=== PATIENT | female | born 1990 | race Caucasian/White ===

== ENCOUNTER → 2024-07-26 08:30 | Outpatient (BNV) | payer OTHER, SELFPAY | PROVIDERS: Visit Provider Psychiatry & Neurology Psychiatry | DX: F39 Unspecified mood [affective] disorder (principal); F10.90 Alcohol use, unspecified, uncomplicated; F41.3 Other mixed anxiety disorders; F43.10 Post-traumatic stress disorder, unspecified; F19.10 Other psychoactive substance abuse, uncomplicated; F84.9 Pervasive developmental disorder, unspecified | CPT/HCPCS: 90834 ==

== ENCOUNTER 2024-08-19 11:30 | Outpatient (RCR) | payer OTHER, SELFPAY ==
[2024-07-26 13:44] VITALS: BP 138/84; PULSE 74; RESP 18; TEMP 36.6; BMI 34.2
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
--- NOTE | 2024-07-28 16:42 | HO.PHP ---
Client's case has been opened and reviewed in team.
--- NOTE | 2024-07-29 11:57 | PC.NURSE ---
New PCP appointment with [facility] on October 26, 2024 at 10:[address] [place] [address]. Office # [phone]
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
--- NOTE | 2024-08-05 12:05 | P.PNPSP_ITS ---
Subjective Subjective Date of Service: 08/05/24 Reason For Visit: AUD,depression,anxiety,PTSD Interim History: Patient seen for follow-up. She is anxious about getting help with what she feels are ADHD symptoms, which seems fairly likely given pervasive development issues, assisted struggles with attention, focus, problems with organization, poor academic performance. She was identified as having learning disabilities at a young age and remained on an IEP/504 throughout schooling, required to repeat 10th grade four times. Gabapentin thus far has been helpful for sleep at 300 mg. Overall helping her keep a more regular sleep schedule, able to get to sleep on time. Tolerating pro pranolol which has been partially effective at 10 mg BID. Anxiety severity has improved from a 10/10 on admission to a 5 or 6 out of 10. Has been able to cut back on clonazepam use. (has taken only once since starting propranolol 10 days ago). Would like to bump up propranolol to see if more effective. For now will try 15-20 mg/10 mg. If beneficial (and no side effects will increase to 15-20 mg BID. Denies any urges or cravings to drink. Last drank March 05. Jackson discussed risk, benefit, side effects of treatment vs non-treatment. WIll trial SR WEllbutrin to target cognitive complaints as well as energy, mood. Medication Compliance: Yes Side effects from medications: No Attending Groups: Yes Review of Systems Acute medical concerns: No Mental Status Exam Mental Status Exam Narrative: Alert, oriented, in no acute distress. Calm, cooperative, engaged. No psychomotor agitation or neurovegetative retardation. Eye contact maintained. Mood anxious, affect constricted. Speech normal. Thought process linear, coherent. Thought content related to stressors, transient hopelessness, denies SI or HI. No paranoia or delusional content elicited. No evidence of psychosis. Insight and judgment - fair but adequate. Diagnostics Vital Signs (24Hr): BMI result Body Mass Index 34.2 Assessment & Plan Assessment & Plan (1) Alcohol use disorder: Status: Acute Code(s): F10.90 - Alcohol use, unspecified, uncomplicated (2) Mood disorder: Status: Acute Code(s): F39 - Unspecified mood [affective] disorder Assessment and Plan: hx of MDD, post- depression, +/- SIMD (3) Other mixed anxiety disorders: Status: Acute Code(s): F41.3 - Other mixed anxiety disorders (4) PTSD (post-traumatic stress disorder): Status: Acute Code(s): F43.10 - Post-traumatic stress disorder, unspecified (5) Polysubstance abuse: Status: Acute Code(s): F19.10 - Other psychoactive substance abuse, uncomplicated Assessment and Plan: in remission (except occasional THC) (6) Pervasive developmental disorder: Status: Acute Code(s): F84.9 - Pervasive developmental disorder, unspecified Assessment and Plan: hx of LD, vs developmental disorder or scholastic skills r/o ADHD r/o other developmental disorders Plan check vitals start Wellbutrin SR 50 mg qam, plan to titrate to 100 mg qam as tolerated continue propranolol 10-20 mg BID (AM and afternoon) as tolerated continue Cymbalta 60 mg qam continue acamprosate 666 mg TID continue gabapentin 100 mg BID (in am and afternoon) continue gabapentin 300 mg (up to 600 mg) qhs prn sleep continue clonazepam 0.5 mg qd prn anxiety (decreased use) may consider starting amantadine to target ADHD sx, spectrum-related irritability/hyperactivity Routine lab work ordered EKG, routine for baseline QTc for medication considerations as indicated UDS as indicated VS reviewed: abrefile, BP 138/84;?74 bpm; (today) 134/84; 84 bpm Continue to monitor Patient educated on: diagnosis, medication risk/benefits and substance abuse Informed Consent: understands Reason for contiued partial hosp. stay Substantial Risk for: med/psych decompensation Certification I certify that partial hospital treatment is medically necessary due to the symptoms and problems resulting from the patient's mental illness and the failure to treat the patient at the partial hospital level of care would likely result in the patient requiring inpatient psychiatric care which could not be prevented at a less intensive level of care. Total time managing care of this patient today __30__ minutes. Discharge Plan Discharge Attending provider: Nga Saucedo Additional Instructions: New PCP appointment with [facility] on October 26, 2024 at 10:[address] [place] [address]. Office # [phone] Medications: New gabapentin 300 mg capsule 300 - 600 mg PO BEDTIME Qty: 20 0RF propranolol 10 mg tablet 10 mg PO BID Qty: 20 0RF Rx Instructions: in AM and afternoon bupropion HCl 100 mg tablet sustained-release 12 hr 100 mg PO QAM Qty: 20 0RF Continued clonazepam 0.5 mg tablet 0.5 mg PO NEEDED PRN (Reason: Anxiety) acamprosate 333 mg tablet,delayed release (DR/EC) 666 mg PO TID duloxetine 60 mg capsule,delayed release(DR/EC) 60 mg PO DAILY gabapentin 100 mg capsule 200 mg PO BID Qty: 10 0RF No Action mirtazapine 30 mg tablet 30 mg PO BEDTIME buspirone 5 mg tablet 5 mg PO TID Stand Alone Forms: Patient Portal Discharge page Print Language: Belarusian
[2024-08-05 14:58] VITALS: BP 134/84; PULSE 84; RESP 14
--- NOTE | 2024-08-11 12:17 | HO.PHPPROGNO ---
Subjective Subjective Date of Service: 08/11/24 Reason For Visit: AUD,depression,anxiety,PTSD Interim History: Doing okay Had diffciulty cutting WB so she went ahead and started at 100 mg SR. Denies any adverse effects thus far. She feels she is already noticing a difference in energy and attention and motivation. Mood slower to improve, still noticing some transient feelings of depreess She notices an uptick in anxiety since running out of propranolol. Had been taking 10 mg BID, helps for 2 or 3 hours and waiting for next dose later in day. Denies any lightheadedness or dizziness. Will increase dose to TID. Denies any SI/HI/AH/VH. Depression severity has improved from a 10 to a 5 out of 10 in severity, Energy has improved from a 0 to a 4. Denies any SI, Has been using marijauna . NO other substance use. Denies any alcohol cravings. Medication Compliance: Yes Side effects from medications: No Attending Groups: Yes Review of Systems Acute medical concerns: No Mental Status Exam Mental Status Exam Narrative: Alert, oriented, in no acute distress. Calm, cooperative, engaged. No psychomotor agitation or neurovegetative retardation. Eye contact maintained. Mood anxious, affect constricted. Speech normal. Thought process linear, coherent. Thought content related to stressors, transient hopelessness, denies SI or HI. No paranoia or delusional content elicited. No evidence of psychosis. Insight and judgment - fair but adequate. Diagnostics Vital Signs (24Hr): BMI result Body Mass Index 34.2 Assessment & Plan Assessment & Plan (1) Alcohol use disorder: Status: Acute Code(s): F10.90 - Alcohol use, unspecified, uncomplicated (2) Mood disorder: Status: Acute Code(s): F39 - Unspecified mood [affective] disorder Assessment and Plan: hx of MDD, post- depression, +/- SIMD (3) Other mixed anxiety disorders: Status: Acute Code(s): F41.3 - Other mixed anxiety disorders (4) PTSD (post-traumatic stress disorder): Status: Acute Code(s): F43.10 - Post-traumatic stress disorder, unspecified (5) Polysubstance abuse: Status: Acute Code(s): F19.10 - Other psychoactive substance abuse, uncomplicated Assessment and Plan: in remission (except occasional THC) (6) Pervasive developmental disorder: Status: Acute Code(s): F84.9 - Pervasive developmental disorder, unspecified Assessment and Plan: hx of LD, vs developmental disorder or scholastic skills r/o ADHD r/o other developmental disorders Plan continue Wellbutrin SR 100 mg qam continue propranolol 10-20 mg BID (AM and afternoon) as tolerated continue Cymbalta 60 mg qam continue acamprosate 666 mg TID continue gabapentin 100 mg BID (in am and afternoon) continue gabapentin 300 mg (up to 600 mg) qhs prn sleep continue clonazepam 0.5 mg qd prn anxiety (decreased use) may consider starting amantadine to target ADHD sx, spectrum-related irritability/hyperactivity Routine lab work ordered EKG, routine for baseline QTc for medication considerations as indicated UDS as indicated VS reviewed: shayan, BP 138/84;?74 bpm; (today) 134/84; 84 bpm Continue to monitor Patient educated on: diagnosis, medication risk/benefits and substance abuse Informed Consent: understands Reason for contiued partial hosp. stay Substantial Risk for: inability to function and med/psych decompensation Certification I certify that partial hospital treatment is medically necessary due to the symptoms and problems resulting from the patient's mental illness and the failure to treat the patient at the partial hospital level of care would likely result in the patient requiring inpatient psychiatric care which could not be prevented at a less intensive level of care. Total time managing care of this patient today __30__ minutes. Discharge Plan Discharge Attending provider: Nga Saucedo Additional Instructions: New PCP appointment with [facility] on October 26, 2024 at 10:[address] [place] [address]. Office # [phone] Medications: New gabapentin 300 mg capsule 300 - 600 mg PO BEDTIME Qty: 20 0RF bupropion HCl 100 mg tablet sustained-release 12 hr 100 mg PO QAM Qty: 20 0RF Continued clonazepam 0.5 mg tablet 0.5 mg PO NEEDED PRN (Reason: Anxiety) acamprosate 333 mg tablet,delayed release (DR/EC) 666 mg PO TID duloxetine 60 mg capsule,delayed release(DR/EC) 60 mg PO DAILY gabapentin 100 mg capsule 200 mg PO BID Qty: 10 0RF Changed propranolol 10 mg tablet 10 mg PO TID 15 Days Qty: 45 0RF Rx Instructions: in AM and afternoon No Action mirtazapine 30 mg tablet 30 mg PO BEDTIME buspirone 5 mg tablet 5 mg PO TID Stand Alone Forms: Patient Portal Discharge page Print Language: Turkish
--- NOTE | 2024-08-11 17:48 | HO.PHP ---
A concurrent review was conducted with Noris from [facility], Kath was approved for 10 more units, her new discharge date is August 18, 2024.
--- NOTE | 2024-08-19 23:12 | HO.PHPPROGNO ---
Subjective Subjective Date of Service: 08/19/24 Reason For Visit: AUD,depression,anxiety,PTSD Mental Status Exam Mental Status Exam Narrative: Alert, oriented, in no acute distress. Calm, cooperative, engaged. No psychomotor agitation or neurovegetative retardation. Eye contact maintained. Mood anxious, affect constricted. Speech normal. Thought process linear, coherent. Thought content related to stressors, transient hopelessness, denies SI or HI. No paranoia or delusional content elicited. No evidence of psychosis. Insight and judgment - fair but adequate. Diagnostics Vital Signs (24Hr): BMI result Body Mass Index 34.2 Assessment & Plan Assessment & Plan (1) Alcohol use disorder: Status: Acute Code(s): F10.90 - Alcohol use, unspecified, uncomplicated (2) Mood disorder: Status: Acute Code(s): F39 - Unspecified mood [affective] disorder Assessment and Plan: hx of MDD, post- depression, +/- SIMD (3) Other mixed anxiety disorders: Status: Acute Code(s): F41.3 - Other mixed anxiety disorders (4) PTSD (post-traumatic stress disorder): Status: Acute Code(s): F43.10 - Post-traumatic stress disorder, unspecified (5) Polysubstance abuse: Status: Acute Code(s): F19.10 - Other psychoactive substance abuse, uncomplicated Assessment and Plan: in remission (except occasional THC) (6) Pervasive developmental disorder: Status: Acute Code(s): F84.9 - Pervasive developmental disorder, unspecified Assessment and Plan: hx of LD, vs developmental disorder or scholastic skills r/o ADHD r/o other developmental disorders Plan continue Wellbutrin SR 100 mg qam continue propranolol 10-20 mg BID (AM and afternoon) as tolerated continue Cymbalta 60 mg qam continue acamprosate 666 mg TID continue gabapentin 100 mg BID (in am and afternoon) continue gabapentin 300 mg (up to 600 mg) qhs prn sleep continue clonazepam 0.5 mg qd prn anxiety (decreased use) may consider starting amantadine to target ADHD sx, spectrum-related irritability/hyperactivity Routine lab work ordered EKG, routine for baseline QTc for medication considerations as indicated UDS as indicated VS reviewed: abrefile, BP 138/84;?74 bpm; (today) 134/84; 84 bpm Continue to monitor Certification I certify that partial hospital treatment is medically necessary due to the symptoms and problems resulting from the patient's mental illness and the failure to treat the patient at the partial hospital level of care would likely result in the patient requiring inpatient psychiatric care which could not be prevented at a less intensive level of care. Total time managing care of this patient today ____ minutes. Discharge Plan Discharge Attending provider: Nga Saucedo Additional Instructions: New PCP appointment with [facility] on October 26, 2024 at 10:[address] [place] [address]. Office # [phone] Medications: Continued clonazepam 0.5 mg tablet 0.5 mg PO NEEDED PRN (Reason: Anxiety) duloxetine 60 mg capsule,delayed release(DR/EC) 60 mg PO DAILY acamprosate 333 mg tablet,delayed release (DR/EC) 666 mg PO TID 15 Days Qty: 90 0RF bupropion HCl 100 mg tablet sustained-release 12 hr 100 mg PO QAM 15 Days Qty: 30 0RF Changed propranolol 10 mg tablet 10 mg PO TID 15 Days Qty: 45 0RF Rx Instructions: in AM and afternoon gabapentin 300 mg capsule 300 mg PO BEDTIME Qty: 15 0RF gabapentin 100 mg capsule 100 mg PO BID PRN (Reason: Anxiety) Qty: 10 0RF Discontinued mirtazapine 30 mg tablet 30 mg PO BEDTIME buspirone 5 mg tablet 5 mg PO TID Stand Alone Forms: Patient Portal Discharge page Patient Education: Post Traumatic Stress Disorder (DC), Anxiety (ED), Alcohol Use Disorder (DC) Print Language: Occitan
== END 2024-08-19 23:59 | disposition home or self-care (01) ==
LOC: HO.PHPA 11:30
PROVIDERS: Visit Provider Psychiatry & Neurology Psychiatry
DX: F10.90 Alcohol use, unspecified, uncomplicated (principal); F39 Unspecified mood [affective] disorder; F41.3 Other mixed anxiety disorders; F43.10 Post-traumatic stress disorder, unspecified; F19.11 Other psychoactive substance abuse, in remission; F84.9 Pervasive developmental disorder, unspecified; Z79.899 Other long term (current) drug therapy
CPT/HCPCS: 90791; 90853

== ENCOUNTER → 2024-09-27 11:45 | Outpatient (BNV) | payer OTHER, SELFPAY | PROVIDERS: Visit Provider Psychiatry & Neurology Psychiatry | DX: F34.89 Other specified persistent mood disorders (principal); F10.90 Alcohol use, unspecified, uncomplicated; F41.3 Other mixed anxiety disorders; F43.11 Post-traumatic stress disorder, acute; F12.90 Cannabis use, unspecified, uncomplicated; F84.9 Pervasive developmental disorder, unspecified | CPT/HCPCS: 90834 ==

== ENCOUNTER → 2024-10-04 08:09 | Outpatient (REF) | payer OTHER, SELFPAY ==
--- NOTE | 2024-10-04 08:22 | ECG_ITS ---
Test Reason : ROUTNE EKG Blood Pressure : */* mmHG Vent. Rate : 77 BPM Atrial Rate : 77 BPM P-R Int : 132 ms QRS Dur : 68 ms QT Int : 370 ms P-R-T Axes : 52 75 58 degrees QTcB Int : 418 ms Normal sinus rhythm Early repolarization Normal ECG No previous ECGs available Referred By: Nga Saucedo Electronically Signed By: SHAYLA KINGSTON
[2024-10-04 08:52] LABS: MANUAL DIFF FLAG NO
[2024-10-04 09:40] LABS: Basophils Absolute Auto 0.1 X10*3/uL (0.0-0.2); Basophils Percent Auto 0.7 % (0-2); Eosinophils Absolute Auto 0.3 X10*3/uL (0.0-0.4); Eosinophils Percent Auto 3.5 % (0-4); Hematocrit 38.1 % (37.0-47.0); Hemoglobin 12.2 g/dl (12.0-16.0); Imm Gran Abs Auto 0.05 X10*3/uL (0.00-0.03); Imm Gran Pct Auto 0.5 % (0.0-0.4); Lymphocytes Absolute Auto 2.3 X10*3/uL (1.2-4.9); Lymphocytes Percent Auto 23.7 % (20-40); Mean Corpuscular Hemoglobin 29.8 pg (27.0-33.0); Mean Corpuscular Volume 92.9 fL (80.0-98.0); Mean Platelet Volume 10.2 fL (9.4-12.3); Monocytes Absolute Auto 0.8 X10*3/uL (0.1-1.2); Monocytes Percent Auto 8.6 % (2-11); Neutrophils Absolute Auto 6.1 x10*3/uL (2.0-8.3); Platelet Count 352 X10*3/uL (160-400); White Blood Count 9.8 X10*3/uL (4.8-10.8)
[2024-10-04 10:08] LABS: Estimated Average Glucose 105 mg/dL; Hemoglobin A1C 111.4418 umol/L; Hemoglobin A1c % 5.3 % (<6.0); Total Hemoglobin (HGBA1C) 3252.4539 umol/L
[2024-10-04 10:17] LABS: Erythrocyte Sedimentation Rate 10 MM/HR (0-20)
[2024-10-04 10:42] LABS: Alanine Aminotransferase 26 U/L (0-31); Albumin Level 4.2 g/dL (3.5-5.0); Alkaline Phosphatase 77 U/L (39-117); Anion Gap 13 (12-20); Aspartate Amino Transferase 19 U/L (5-31); Bilirubin Total 0.3 mg/dL (0.0-1.0); Blood Urea Nitrogen 15 mg/dL (9-16); C Reactive Protein 0.22 mg/dL (< or = 0.50); Calcium 8.8 mg/dL (8.4-10.2); Carbon Dioxide 24 mmol/L (22-29); Chloride 107 mmol/L (96-108); Cholesterol 190 mg/dL (<200); Estimated Glomerular Filt Rate > 60; Free T4 (Free Thyroxine) 0.89 ng/dL (0.71-1.85); Glucose Fasting 98 mg/dL (60-99); HDL Cholesterol 50 mg/dL (>40); Iron 61 mcg/dL (30-160); LDL Cholesterol Calculated 119 mg/dL (<100); Magnesium 2.1 mg/dL (1.6-2.6); Percent Iron Saturation 21 % (15-50); Potassium 4.5 mmol/L (3.3-5.1); Sodium 139 mmol/L (135-145); Thyroid Stimulating Hormone 1.88 uIU/mL (0.32-4.0); Total Iron Binding Capacity 294 mcg/dL (228-428); Total Protein 7.3 g/dL (6.5-8.0); Triglycerides 105 mg/dL (<150); Unsaturated Iron Binding 233 ug/dL; Vitamin D 25-OH Total 13.6 ng/mL (>30)
[2024-10-04 10:48] LABS: HBS Num1 762.33 mIU/mL (0-7.99); HBsAGNum1 0.27 S/CO (0.00-0.99); Hepatitis B Core Antibody Nonreactive (Nonreactive); Hepatitis B Surface Antigen Negative (Negative); ~HepC Num1 0.09 S/CO (0.00-0.79); ~Hepatitis B Surface Antibody REACTIVE (Nonreactive); ~Hepatitis C Antibody Nonreactive (Nonreactive)
[2024-10-04 10:49] LABS: Syphilis Screen Nonreactive (Nonreactive)
[2024-10-04 10:59] LABS: Folate 6.1 ng/mL (> or = 4.0); Vitamin B12 444 pg/mL (200-900)
[2024-10-05 18:27] LABS: Homocysteine 9.5 umol/L (<10.4)
== END | disposition home or self-care (01) ==
LOC: HO.CARD 08:09
PROVIDERS: Visit Provider Psychiatry & Neurology Psychiatry
DX: F39 Unspecified mood [affective] disorder (principal); F41.3 Other mixed anxiety disorders; F10.90 Alcohol use, unspecified, uncomplicated
CPT/HCPCS: 80053; 80061; 82306; 82607; 82746; 83036; 83090; 83540; 83735; 84425; 84439; 84443; 85025; 85652; 86140; 86704; 86706; 86780; 86803; 87340; 93005

== ENCOUNTER → 2024-10-04 08:22 | Outpatient (BNV) | payer OTHER, SELFPAY | PROVIDERS: Visit Provider Internal Medicine | DX: Z13.6 Encounter for screening for cardiovascular disorders (principal) | CPT/HCPCS: 93010 ==

== ENCOUNTER 2024-10-18 13:00 | Outpatient (RCR) | payer OTHER, SELFPAY ==
[2024-09-26 09:40] VITALS: BMI 34.4
[2024-09-26 09:41] VITALS: BP 118/88; PULSE 80; TEMP 37
--- NOTE | 2024-09-26 13:11 | PC.ADMIT ---
Patient is a 34 year old single female who self referred back to [facility] on the advisement of [facility] (she was previously attending [facility] in July 2024) as she is experiencing increased depression, anxiety, and PTSD sxs. Patient also reports relapsing on alcohol in May 2024 for one day and stated DCF wants her to continue treatment for alcohol use along with attending daily AA meetings. Patient reports she was sober from alcohol since March 2024 with the exception of one relapse in May 2024. She reports she is smoking 1-1.5 grams of marijuana daily. Patient stated she is trying to get custody of her 7 year old daughter who is currently in foster care. According to [facility] [employer] DCF got involved when patient forgot to pick her daughter up from the bus stop d/t alcohol use. Patient is at [facility] to work on her mental health and maintain sobriety. Patient lives with dad and step mom. Patient reports they are supportive. Patient is alert and oriented x4. She is calm and cooperative. She presented with anxious mood and affect. She was somewhat hypeverbal however she stated she drank an energy drink 12 ounces prior to program to give her more energy. She stated she drinks energy drinks on occasion. Patient denied SI, no HI. She was given a copy of her safety plan if needed. Medications reconciled with patient and patient's pharmacy. Patient stated she saw her prescriber and is no longer on Remeron. Patient is prescribed MAT with Campral. Per Pharmacy they are out of stock of this medication.
--- NOTE | 2024-09-26 13:33 | PC.NURSE ---
Patient has a new PCP appointment. Virtual appointment with Martin Greenfield NP on December 22, 2024 at 4:55 pm. Prior to the appointment request your records from previous PCP be sent to Martin Greenfield. [facility]. [address] [facility] [place], [place]. Office #[phone].
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
[2024-09-27 06:05] LABS: Amphetamine Screen Urine Not Detected (Not Detect); Barbiturates, Urine Not Detected (Not Detect); Benzodiazepines Screen Urine Not Detected (Not Detect); Buprenorphine Scr Not Detected (Not Detect); Cannabinoid Screen Urine POSITIVE (Not Detect); Cocaine Screen Urine Not Detected (Not Detect); Fentanyl, urine Not Detected (Not Detect); Methadone Screen, Urine Not Detected (Not Detect); Opiate Screen Urine Not Detected (Not Detect); Oxycodone Screen Urine Not Detected (Not Detect); Phencyclidine Screen Urine Not Detected (Not Detect)
--- NOTE | 2024-09-29 15:31 | HO.PHP ---
Client's case has been opened and reviewed in team.
--- NOTE | 2024-09-30 07:56 | HO.PHP ---
PHP Admin, Breanna, informed the team that Kath will not be in attendance to program due to having a sore throat and mild fever. Kath will be in attendance to program on Thursday.
--- NOTE | 2024-10-04 12:27 | HO.PHPPROGNO ---
Subjective Subjective Date of Service: 10/04/24 Reason For Visit: AUD,depression,anxiety,PTSD Interim History: Approached by patient a few times, requesting to be seen. Asks about lab work findings, however she had labs drawn less than an hour ago so only CBC posted. Denies any particular health concerns. Compliant on meds, feels some imprvement with Wellbutrin back on. SHe had been as high as 150 mg BID prior to admission and felt this was very good for ADHD sx, only that she ran out of medication prior to starting PHP. Denies any feelings of agitation or overactivation. Calm, pleasant but somewhat distractible, easily redirectable. She is taking propranolol at 20 mg/10 mg/20 mg. The 20 mg makes a much bigger difference than 10 mg which she can't really tell it's helping. Denies any lightheadedness or dizziness. Mood has improved, anxiety better managed. Feels a little nervousness in the afternoon and would like mid-day dose to be increased. Denies any hopelessness or SI. Denies any alcohol or substance use. Denies any cravings. Mental Status Exam Mental Status Exam Narrative: Alert, oriented, in no acute distress. Calm, cooperative, engaged, pleasant. presents younger than age. No psychomotor agitation or neurovegetative retardation. Eye contact maintained. Mood better , affect brighter. Speech normal. Thought process linear, coherent. Thought content related to stressors, denies hopeless or SI or HI. No paranoia or delusional content elicited. No evidence of psychosis. Insight and judgment - fair but adequate. Diagnostics Vital Signs (24Hr): BMI result Body Mass Index 34.4 Assessment & Plan Assessment & Plan (1) Alcohol use disorder: Status: Acute Code(s): F10.90 - Alcohol use, unspecified, uncomplicated (2) Other specified persistent mood disorders: Status: Acute Code(s): F34.89 - Other specified persistent mood disorders Assessment and Plan: MDD +/- SIMD history of PPD (post- depression) (3) Other mixed anxiety disorders: Status: Acute Code(s): F41.3 - Other mixed anxiety disorders (4) PTSD (post-traumatic stress disorder): Status: Acute Code(s): F43.10 - Post-traumatic stress disorder, unspecified (5) Cannabis use disorder: Status: Acute Code(s): F12.90 - Cannabis use, unspecified, uncomplicated (6) Pervasive developmental disorder: Status: Acute Code(s): F84.9 - Pervasive developmental disorder, unspecified Assessment and Plan: hx of LD vs other scholastic delays r/o ADHD r/o other developmental disorders Plan increase bupropion SR to 150 mg in AM and continue 100 mg at lunch for 4 days, continue duloxetine 60 mg qd reinstate propranolol at 20mg/10mg/20mg in AM/early afternoon/evening continue gabapentin 300 mg qhs sleep continue gabapentin 100 mg BID (in am and afternoon) continue acamprosate 666 mg TID continue clonazepam 0.5 mg qd prn Pending lab work Pending EKG, routine UDS as indicated Continue to monitor Patient educated on: diagnosis, medication risk/benefits and substance abuse Informed Consent: understands Certification I certify that partial hospital treatment is medically necessary due to the symptoms and problems resulting from the patient's mental illness and the failure to treat the patient at the partial hospital level of care would likely result in the patient requiring inpatient psychiatric care which could not be prevented at a less intensive level of care. Total time managing care of this patient today __30__ minutes. Discharge Plan Discharge Attending provider: Nga Saucedo Additional Instructions: New PCP appointment. Virtual appointment with Martin Greenfield NP on December 22, 2024 at 4:55 pm. Prior to the appointment request your records from previous PCP be sent to Martin Greenfield. [facility]. [address] [place] [address]. [address] [place] [address]. Office #[phone]. Medications: New bupropion HCl 100 mg tablet sustained-release 12 hr 100 mg PO BID Qty: 30 0RF propranolol 20 mg tablet 20 mg PO TID PRN (Reason: anxiety) Qty: 30 0RF Rx Instructions: as directed bupropion HCl 150 mg tablet sustained-release 12 hr 150 mg PO BID Qty: 30 0RF vitamin B complex Capsule 1 cap PO DAILY Qty: 30 0RF Rx Instructions: administer with a meal ergocalciferol (vitamin D2) [Vitamin D2] 1,250 mcg (50,000 unit) capsule 1,250 mcg PO QWEEK Qty: 12 0RF Continued clonazepam 0.5 mg tablet 0.5 mg PO NEEDED PRN (Reason: Severe anxiety) duloxetine 60 mg capsule,delayed release(DR/EC) 60 mg PO DAILY acamprosate 333 mg tablet,delayed release (DR/EC) 666 mg PO TID 15 Days Qty: 90 0RF Rx Instructions: Last filled Apr 2024 #180. Pharmacy stated it is out of stock. gabapentin 300 mg capsule 300 mg PO BEDTIME Qty: 15 0RF gabapentin 100 mg capsule 100 mg PO BID PRN (Reason: Anxiety) Qty: 10 0RF Patient Comments: Patient stated she takes as needed. Rx Instructions: Take in the morning and afternoon. Discontinued bupropion HCl [Wellbutrin SR] 150 mg Tablet Sustained-Release 12 Hr 150 mg PO DAILY No Action propranolol 10 mg tablet 10 mg PO TID 15 Days Qty: 45 0RF Rx Instructions: in AM and afternoon Stand Alone Forms: Patient Portal Discharge page Print Language: Dominican
--- NOTE | 2024-10-07 10:01 | HO.PHP ---
PHP staff member sent over a referral for [facility]SP through [facility] for Kath Sanchez. PHP staff member is awaiting on a scheduled date and time.
--- NOTE | 2024-10-11 13:51 | HO.PHPPROGNO ---
Subjective Subjective Date of Service: 10/11/24 Reason For Visit: AUD,depression,anxiety,PTSD Interim History: Patient seen for follow-up She reports overwhelmed overall she is doing well Wellbutrin XL at 150 mg twice a day she feels this has been helpful for her mood focus and is having more energy. Some cognitive anxiety tendency to worry persists mostly around issues involving being from her child and trying to get custody back from [facility] however she has been reaching DCF goals, following court plan and is expecting court date in November. Propranolol has been helpful with body anxiety and she does feel more calm and is tolerating 20 mg 3 times a day continues on Cymbalta 60 as well as Campral and gabapentin 300 mg at bedtime. Sleep is intact denies any issues denies any alcohol use or substances in the interim denies any cravings. Reviewed reviewed recent lab work and EKG. Medication Compliance: Yes Side effects from medications: No Attending Groups: Yes Review of Systems Acute medical concerns: No Mental Status Exam Mental Status Exam Narrative: Alert, oriented, in no acute distress. Calm, cooperative, engaged, pleasant. presents younger than age. No psychomotor agitation or neurovegetative retardation. Eye contact maintained. Mood better , affect brighter. Speech normal. Thought process linear, coherent. Thought content related to stressors, denies hopeless or SI or HI. No paranoia or delusional content elicited. No evidence of psychosis. Insight and judgment - fair but adequate. Diagnostics Vital Signs (24Hr): BMI result Body Mass Index 34.4 Assessment & Plan Assessment & Plan (1) Alcohol use disorder: Status: Acute Code(s): F10.90 - Alcohol use, unspecified, uncomplicated (2) Other specified persistent mood disorders: Status: Acute Code(s): F34.89 - Other specified persistent mood disorders Assessment and Plan: MDD +/- SIMD history of PPD (post- depression) (3) Other mixed anxiety disorders: Status: Acute Code(s): F41.3 - Other mixed anxiety disorders (4) PTSD (post-traumatic stress disorder): Status: Acute Code(s): F43.10 - Post-traumatic stress disorder, unspecified (5) Cannabis use disorder: Status: Acute Code(s): F12.90 - Cannabis use, unspecified, uncomplicated (6) Pervasive developmental disorder: Status: Acute Code(s): F84.9 - Pervasive developmental disorder, unspecified Assessment and Plan: hx of LD vs other scholastic delays r/o ADHD r/o other developmental disorders Plan continue bupropion SR 150 mg BID continue duloxetine 60 mg qd continue propranolol 20mg TID continue gabapentin 300 mg qhs sleep continue gabapentin 100 mg BID (in am and afternoon) continue acamprosate 666 mg TID continue clonazepam 0.5 mg qd prn Reviewed lab work - vitaminD deficiency, vit B1 normal/low Pending EKG, routine UDS as indicated Continue to monitor Patient educated on: diagnosis, medication risk/benefits and substance abuse Informed Consent: understands Reason for contiued partial hosp. stay Substantial Risk for: med/psych decompensation Certification I certify that partial hospital treatment is medically necessary due to the symptoms and problems resulting from the patient's mental illness and the failure to treat the patient at the partial hospital level of care would likely result in the patient requiring inpatient psychiatric care which could not be prevented at a less intensive level of care. Total time managing care of this patient today __30__ minutes. Discharge Plan Discharge Attending provider: Nga Saucedo Additional Instructions: New PCP appointment. Virtual appointment with aMrtin Greenfield NP on December 22, 2024 at 4:55 pm. Prior to the appointment request your records from previous PCP be sent to Martin Greenfield. [facility]. [address] [place] [address]. [address] [place] [address]. Office #[phone]. Medications: New bupropion HCl 100 mg tablet sustained-release 12 hr 100 mg PO BID Qty: 30 0RF propranolol 20 mg tablet 20 mg PO TID PRN (Reason: anxiety) Qty: 30 0RF Rx Instructions: as directed bupropion HCl 150 mg tablet sustained-release 12 hr 150 mg PO BID Qty: 30 0RF vitamin B complex Capsule 1 cap PO DAILY Qty: 30 0RF Rx Instructions: administer with a meal ergocalciferol (vitamin D2) [Vitamin D2] 1,250 mcg (50,000 unit) capsule 1,250 mcg PO QWEEK Qty: 12 0RF Continued clonazepam 0.5 mg tablet 0.5 mg PO NEEDED PRN (Reason: Severe anxiety) duloxetine 60 mg capsule,delayed release(DR/EC) 60 mg PO DAILY acamprosate 333 mg tablet,delayed release (DR/EC) 666 mg PO TID 15 Days Qty: 90 0RF Rx Instructions: Last filled Apr 2024 #180. Pharmacy stated it is out of stock. gabapentin 300 mg capsule 300 mg PO BEDTIME Qty: 15 0RF gabapentin 100 mg capsule 100 mg PO BID PRN (Reason: Anxiety) Qty: 10 0RF Patient Comments: Patient stated she takes as needed. Rx Instructions: Take in the morning and afternoon. Discontinued bupropion HCl [Wellbutrin SR] 150 mg Tablet Sustained-Release 12 Hr 150 mg PO DAILY No Action propranolol 10 mg tablet 10 mg PO TID 15 Days Qty: 45 0RF Rx Instructions: in AM and afternoon Stand Alone Forms: Patient Portal Discharge page Print Language: Korean
--- NOTE | 2024-10-12 09:38 | PC.NURSE ---
Dr. Saucedo reviewed patient labs completed on 10/04/24 and EKG results NSR, early repolarization, Normal EKG. No new orders.
--- NOTE | 2024-10-13 09:18 | PC.NURSE ---
Kath stated she has to go to court tomorrow and will not be able to make it to the program as a result.
--- NOTE | 2024-10-14 10:02 | HO.PHP ---
Kath is not scheduled to be in attendance to program today due to having court.
--- NOTE | 2024-10-17 07:56 | HO.PHP ---
PHP Admin, Breanna, informed the team that Kath will not be in attendance to program today because she has food poisoning.
--- NOTE | 2024-10-18 23:21 | HO.PHPPROGNO ---
Subjective Subjective Date of Service: 10/18/24 Reason For Visit: AUD,depression,anxiety,PTSD Interim History: Patient seen for follow-up, anticipating discharge at the end of program today.? Feeling a little anxious about leaving, but I think I'm ready this time Patient recovering from a stomach bug/food poisoning. Spent weekend n/v. Missed program yesterday. Feeling better today. She continues on gabapentin 100 mg BID prn (usually takes one per day, sometimes twice) and takes 300 mg gabapentin every night. Has been helpful for anxiety. She still working with [employer]. Has therapeutic support Andreea Garza and will see her med provider Richard Choudhary on 10/28. Reports no acute issues or concerns. Medication compliant, medications well-tolerated. Denies any adverse effects.? Mood is stable.? Denies any hopelessness or SI. Denies thoughts of harming self or others at this time. Denies any aggressive ideation or HI. Denies any paranoia or AH or VH. Sleep, appetite, energy stable. Medication Compliance: Yes Side effects from medications: No Attending Groups: Yes Review of Systems Acute medical concerns: No Mental Status Exam Mental Status Exam Narrative: Alert, oriented, in no acute distress. Calm, cooperative. Mood anxious, stable, affect appropriate. Speech normal. Thought process linear, coherent, more goal-directed. Thought content related to stressors, future-oriented, denies any helplessness, hopelessness or SI.? No aggressive ideation or HI. No paranoia or delusional content elicited. No evidence of psychosis. Insight and judgment fair-good. Diagnostics Vital Signs (24Hr): BMI result Body Mass Index 34.4 Assessment & Plan Assessment & Plan (1) Alcohol use disorder: Status: Acute Code(s): F10.90 - Alcohol use, unspecified, uncomplicated (2) Other specified persistent mood disorders: Status: Acute Code(s): F34.89 - Other specified persistent mood disorders (3) Other mixed anxiety disorders: Status: Acute Code(s): F41.3 - Other mixed anxiety disorders (4) PTSD (post-traumatic stress disorder): Status: Acute Code(s): F43.10 - Post-traumatic stress disorder, unspecified (5) Cannabis use disorder: Status: Acute Code(s): F12.90 - Cannabis use, unspecified, uncomplicated (6) Pervasive developmental disorder: Status: Acute Code(s): F84.9 - Pervasive developmental disorder, unspecified Plan Discharge from [facility] Continue regular medications Refills sent to pharmacy Will defer further medication management to outpatient provider *Safety plan reviewed *Discharge diagnoses, treatment course, discharge plan have been reviewed with patient (including medication regime, medication management, potential side effects) as well as treatment rationale were also revisited *Discharge paperwork signed and given to patient, copy sent for scanning to chart Patient educated on: diagnosis, medication risk/benefits and substance abuse Informed Consent: understands Reason for contiued partial hosp. stay Substantial Risk for: stable for discharge Certification I certify that partial hospital treatment is medically necessary due to the symptoms and problems resulting from the patient's mental illness and the failure to treat the patient at the partial hospital level of care would likely result in the patient requiring inpatient psychiatric care which could not be prevented at a less intensive level of care. Total time managing care of this patient today __30__ minutes. Discharge Plan Discharge Attending provider: Nga Saucedo Additional Instructions: New PCP appointment. Virtual appointment with Martin Greenfield NP on December 22, 2024 at 4:55 pm. Prior to the appointment request your records from previous PCP be sent to Martin Greenfield. [facility]. [address] [place] [address]. [address] [place]. Office #[phone]. Medications: New vitamin B complex Capsule 1 cap PO DAILY Qty: 30 0RF Rx Instructions: administer with a meal ergocalciferol (vitamin D2) [Vitamin D2] 1,250 mcg (50,000 unit) capsule 1,250 mcg PO QWEEK Qty: 12 0RF multivitamin Tablet 1 tab PO DAILY Qty: 30 0RF Continued clonazepam 0.5 mg tablet 0.5 mg PO NEEDED PRN (Reason: Severe anxiety) gabapentin 300 mg capsule 300 mg PO BEDTIME Qty: 15 0RF bupropion HCl 150 mg tablet sustained-release 12 hr 150 mg PO BID Qty: 60 0RF gabapentin 100 mg capsule 100 mg PO BID PRN (Reason: Anxiety) Qty: 20 0RF Patient Comments: Patient stated she takes as needed. Rx Instructions: Take in the morning and afternoon. propranolol 20 mg tablet 20 mg PO TID PRN (Reason: anxiety) Qty: 90 0RF Rx Instructions: as directed acamprosate 333 mg tablet,delayed release (DR/EC) 666 mg PO TID 15 Days Qty: 90 0RF Rx Instructions: Last filled Apr 2024 #180. Pharmacy stated it is out of stock. duloxetine 60 mg capsule,delayed release(DR/EC) 60 mg PO DAILY Qty: 30 0RF Discontinued propranolol 10 mg tablet 10 mg PO TID 15 Days Qty: 45 0RF Rx Instructions: in AM and afternoon bupropion HCl [Wellbutrin SR] 150 mg Tablet Sustained-Release 12 Hr 150 mg PO DAILY Stand Alone Forms: Patient Portal Discharge page Patient Education: Depression (DC), Post Traumatic Stress Disorder (DC), Anxiety (ED), Alcohol Use Disorder (DC) Print Language: Congolese
== END 2024-10-18 23:59 | disposition home or self-care (01) ==
LOC: HO.PHPA 13:00
PROVIDERS: Visit Provider Psychiatry & Neurology Psychiatry
DX: F34.89 Other specified persistent mood disorders (principal); F41.3 Other mixed anxiety disorders; F43.10 Post-traumatic stress disorder, unspecified; F84.9 Pervasive developmental disorder, unspecified; F10.90 Alcohol use, unspecified, uncomplicated; F12.90 Cannabis use, unspecified, uncomplicated; Z79.899 Other long term (current) drug therapy
CPT/HCPCS: 80307; 90791; 90853